=== PATIENT | female | born 1960 | race African-American/Black ===

== ENCOUNTER 2021-04-09 12:42 | Inpatient (IN) ==
[2021-04-09] MEDS ORDERED: hydrALAZINE 20 MG/1 ML VIAL IV STA (13:32)
[2021-04-09 13:55] LABS: Basophils % 0.5 % (0.0-0.8); Eosinophils # 0.3 10*3/uL (0.0-0.87); Eosinophils % 5.2 % (0.00-10.9); Hemoglobin 12.9 GM/DL (12.0-16.0); Immature Granulocytes % 0.3 %; Immature Granulocytes Absolute 0.02 #; Lymphocytes # 1.8 10*3/uL (1.4-4.0); Mean Corpuscular HGB Conc 31.5 GM/DL (32-36); Mean Corpuscular Volume 75.6 FL (87-102); Monocytes % 7.1 % (1.7-12.7); Neutrophils % 55.9 % (38.7-73.9); Platelet Count 76 T/CUMM (130-400); Red Blood Count 5.42 MC/CUMM (3.8-5.5); Red Cell Distribution Width 18.6 % (9.3-17.3); White Blood Count 5.7 T/CUMM (4-12)
[2021-04-09 14:05] LABS: PT Patient Result 10.9 SECS (10.5-12.0); Partial Thromboplastin Time 22.9 SECS (23.9-33.8)
[2021-04-09 14:16] LABS: Alanine Aminotransferase 49 U/L (13-56); Albumin 3.4 G/DL (3.4-5.0); Alkaline Phosphatase 116 U/L (45-117); Aspartate Amino Transferase 41 U/L (0-37); Bilirubin,Total < 0.39 MG/DL (0.20-1.00); Blood Urea Nitrogen 28 MG/DL (7-18); Calcium 9.5 MG/DL (8.5-10.1); Carbon Dioxide 30 MMOL/L (21-32); Estimated Glom Filtration Rate 14 ML/MIN; Glucose 85 MG/DL (74-106); Osmolality,Calculated 277.8 MOS/KG (273-304); Potassium 3.7 MMOL/L (3.5-5.1); Sodium 137 MMOL/L (136-145); Total Protein 8.1 G/DL (6.4-8.2)
[2021-04-09 14:17] LABS: Barbiturates Screen,Urine Negative (Negative); Benzodiazepines Screen,Urine Negative (Negative); Cannabinoid Screen,Urine Negative (Negative); Opiate Screen,Urine Negative (Negative); Phencyclidine Screen,Urine Negative (Negative)
[2021-04-09 14:32] LABS: Eosinophils 5 % (0-10); Lymphocytes 35 % (20-55); Platelet Estimate Decreased; Segmented Neutrophils 52 % (50-85); Total Cells Counted 100
[2021-04-09 14:33] LABS: Hypochromasia Slight; Microcytosis Slight
[2021-04-09] MEDS ORDERED: cloNIDine 0.1 MG TABLET PO STA (15:50)
[2021-04-09] MEDS ORDERED: LABETALOL 100 MG/20 ML VIAL IV STA (15:50)
[2021-04-09] MEDS ORDERED: DEXTROSE 50% 25 GM/50 ML VIAL IV PRN (17:35)
[2021-04-09] MEDS ORDERED: GLUCAGON 1 MG VIAL IM PRN (17:35)
[2021-04-09] MEDS ORDERED: LABETALOL 20 MG/4 ML SYRINGE IV PRN (17:40)
[2021-04-09] MEDS ORDERED: ACETAMINOPHEN 325 MG TABLET PO PRN (17:48)
[2021-04-09] MEDS ORDERED: DOCUSATE SODIUM 100 MG CAPSULE PO PRN (17:48)
[2021-04-09] MEDS ORDERED: LACTULOSE 20 GM/30 ML UDCUP PO PRN (17:48)
[2021-04-09] MEDS ORDERED: ONDANSETRON 4 MG/2 ML VIAL IV PRN (17:48)
[2021-04-09] MEDS ORDERED: LORazepam 0.5 MG TABLET PO PRN (17:52)
[2021-04-09] MEDS ORDERED: diphenhydrAMINE CAP 25 MG CAPSULE PO PRN (17:58)
[2021-04-09] MEDS ORDERED: diphenhydrAMINE CAP 25 MG CAPSULE ONE (18:03)
[2021-04-09] MEDS ORDERED: LEVOFLOXACIN INJ 500 MG/100 ML PREMIX IV SCH (21:00)
[2021-04-09] MEDS ORDERED: cloNIDine 0.1 MG TABLET PO SCH (21:00)
[2021-04-09] MEDS: DOXAZOSIN 1 MG TABLET PO SCH (21:22)
[2021-04-10 06:01] LABS: Basophils % 0.3 % (0.0-0.8); Eosinophils # 0.3 10*3/uL (0.0-0.87); Eosinophils % 5.7 % (0.00-10.9); Hematocrit 35.3 VOL% (35.7-47.0); Hemoglobin 11.4 GM/DL (12.0-16.0); Immature Granulocytes % 0.2 %; Immature Granulocytes Absolute 0.01 #; Lymphocytes # 1.9 10*3/uL (1.4-4.0); Lymphocytes % 31.5 % (21.3-54.2); Mean Corpuscular HGB Conc 32.3 GM/DL (32-36); Mean Corpuscular Volume 73.7 FL (87-102); Mean Platelet Volume 10.8 FL (9.6-12.0); Monocytes % 7.4 % (1.7-12.7); Neutrophils % 54.9 % (38.7-73.9); Platelet Count 142 T/CUMM (130-400); Red Blood Count 4.79 MC/CUMM (3.8-5.5); Red Cell Distribution Width 17.4 % (9.3-17.3)
[2021-04-10 06:18] LABS: Osmolality,Calculated 283.5 MOS/KG (273-304); Potassium 3.4 MMOL/L (3.5-5.1)
[2021-04-10 06:57] LABS: Hypochromasia 3+; Platelet Estimate Adequate; Target Cells Slight
[2021-04-10] MEDS ORDERED: LABETALOL 20 MG/4 ML SYRINGE IV PRN (08:11)
[2021-04-10] MEDS ORDERED: niCARdipine INJ 25 MG in SODIUM CHLORIDE 0.9% 240 ML IV PRN (08:11)
[2021-04-10] MEDS ORDERED: ALTEPLASE IV ONE (08:11)
[2021-04-10] MEDS: DOXAZOSIN 1 MG TABLET PO SCH (08:26)
[2021-04-10] MEDS ORDERED: SODIUM CHLORIDE 0.9% 1,000 ML IV SCH (08:30)
[2021-04-10] MEDS ORDERED: CLOPIDOGREL 75 MG TABLET PO SCH ×2 (09:00→12:15)
[2021-04-10 09:49] VITALS: BP 130/68
[2021-04-10] MEDS ORDERED: APIXABAN 5 MG TABLET PO SCH (12:00)
[2021-04-10] MEDS: APIXABAN 2.5 MG TABLET PO SCH ×2 (12:44→20:53)
[2021-04-10] MEDS: ASPIRIN 325 MG TABLET PO SCH (12:44)
[2021-04-10] MEDS ORDERED: hydrALAZINE 20 MG/1 ML VIAL IV PRN (17:13)
[2021-04-10] MEDS ORDERED: ROSUVASTATIN 20 MG TABLET PO SCH (21:00)
[2021-04-11 05:16] LABS: Basophils % 0.1 % (0.0-0.8); Eosinophils # 0.3 10*3/uL (0.0-0.87); Eosinophils % 3.5 % (0.00-10.9); Hematocrit 35.6 VOL% (35.7-47.0); Hemoglobin 11.3 GM/DL (12.0-16.0); Immature Granulocytes % 0.1 %; Immature Granulocytes Absolute 0.01 #; Lymphocytes # 1.3 10*3/uL (1.4-4.0); Lymphocytes % 18.7 % (21.3-54.2); Mean Corpuscular HGB Conc 31.7 GM/DL (32-36); Mean Corpuscular Volume 74.8 FL (87-102); Mean Platelet Volume 11.3 FL (9.6-12.0); Neutrophils % 71.6 % (38.7-73.9); Platelet Count 165 T/CUMM (130-400); Red Blood Count 4.76 MC/CUMM (3.8-5.5); Red Cell Distribution Width 17.7 % (9.3-17.3); White Blood Count 7.1 T/CUMM (4-12)
[2021-04-11 06:58] LABS: Hypochromasia 2+; Microcytosis 3+; Platelet Estimate Normal; Target Cells Few
[2021-04-11 07:29] LABS: Basophils % 0.3 % (0.0-0.8); Eosinophils # 0.1 10*3/uL (0.0-0.87); Eosinophils % 1.9 % (0.00-10.9); Hematocrit 37.6 VOL% (35.7-47.0); Hemoglobin 11.8 GM/DL (12.0-16.0); Immature Granulocytes % 0.4 %; Immature Granulocytes Absolute 0.03 #; Lymphocytes # 0.9 10*3/uL (1.4-4.0); Lymphocytes % 12.3 % (21.3-54.2); Mean Corpuscular HGB Conc 31.4 GM/DL (32-36); Mean Corpuscular Volume 74.5 FL (87-102); Mean Platelet Volume 10.3 FL (9.6-12.0); Monocytes % 4.8 % (1.7-12.7); Neutrophils % 80.3 % (38.7-73.9); Platelet Count 175 T/CUMM (130-400); Red Blood Count 5.05 MC/CUMM (3.8-5.5); Red Cell Distribution Width 17.7 % (9.3-17.3); White Blood Count 6.9 T/CUMM (4-12)
[2021-04-11 08:01] LABS: VLDL Cholesterol 20.8 MG/DL
[2021-04-11] MEDS: ASPIRIN 325 MG TABLET PO SCH (08:23)
[2021-04-11] MEDS: APIXABAN 2.5 MG TABLET PO SCH (08:23)
[2021-04-11 08:28] LABS: Thyroid Stimulating Hormone 2.21 uIU/ml (0.358-3.74)
[2021-04-11 11:07] LABS: Hypochromasia 3+; Microcytosis 3+; Ovalocytes Few; Platelet Estimate Adequate; Polychromasia Slight; Target Cells Slight
[2021-04-11 12:08] LABS: Albumin 2.9 G/DL (3.4-5.0); Bilirubin,Total 0.5 MG/DL (0.20-1.00); Calcium 9.3 MG/DL (8.5-10.1); Osmolality,Calculated 284.5 MOS/KG (273-304); Potassium 3.8 MMOL/L (3.5-5.1); Total Protein 6.9 G/DL (6.4-8.2)
== END 2021-04-11 13:56 | disposition hospice, home (50) | DRG 64 ==
LOC: N.EDINP 12:42 → N.ED 12:42 → SUATTDRO 17:33 → N.TELEN 20:30 → SUATTDRO 04-10 09:40 → N.ICU 04-10 10:08
PROVIDERS: ADMIT Hospitalist; ATTEND Family Medicine